=== PATIENT | female | born 1950 | race Asian ===

== ENCOUNTER 2017-08-07 10:12 | Emergency (ER) | payer BC ==
[~2017-08-07] VITALS: Ht 154.9 cm; Wt 49.6 kg
[2017-08-07] MEDS ORDERED: SITA1TAB5 PO (10:48)
[2017-08-07] MEDS ORDERED: CLON0.1T PO (10:48)
[2017-08-07] MEDS ORDERED: GLIM1TAB2 PO (10:48)
[2017-08-07] MEDS ORDERED: [UNRECOGNIZED DRUG - CODE] PO (10:48)
[2017-08-07] MEDS ORDERED: LISINOPRIL 10 MG TABLET PO ONE (11:30)
[2017-08-07] MEDS ORDERED: PLEASE ENTER ALLERGIES MC SCH ×2 (11:30)
[2017-08-07 12:53] VITALS: BP 145/71
== END 2017-08-07 12:55 | disposition home or self-care (01) ==
LOC: ED 12:40
DX: I10 Essential (primary) hypertension (principal)
CPT/HCPCS: 36415; 80047; 93005